=== PATIENT | female | born 1935 | race Caucasian/White ===

== ENCOUNTER 2017-11-26 21:04 | Inpatient (IN) | payer MEDICARE, SELFPAY ==
[2017-11-26 21:18] VITALS: BP 129/103; PULSE 113; RESP 22; TEMP 40.4; O2SAT 88; BMI 20.7
--- NOTE | 2017-11-26 21:23 | ED_ITS ---
HPI - Fever General Chief Complaint: Fever Stated Complaint: altered mental status Time Seen by Provider: 11/26/17 21:10 Source: family Mode of arrival: EMS Limitations: other History of Present Illness HPI Narrative: Patient is an 82-year-old female who arrived with her and financial compliance officer stating that starting just prior to arrival the patient became more altered at home. The states that she does have a history of Alzheimer's and is relatively nonverbal however will interact with stimulation. They state that since last evening she has become interactive. They were concerned about dark urine. Also a fever at home. No history of trauma. Related Data Allergies Allergy/AdvReac Type Severity Reaction Status Date / Time No Known Drug Allergies Allergy Verified 11/26/17 21:28 Review of Systems Review of Systems unobtainable due to mental status PFSH Medical History Alzheimer's dementia (Acute) Surgical History No pertinent past surgical history (Acute) Family History: Reviewed 11/26/17 by Tony Villafana MD Social History household members: spouse Smoking Status: Unknown if ever smoked Exam Initial Vital Signs Initial Vital Signs: Vital Signs Temperature 104.7 F H 11/26/17 21:18 Pulse Rate 113 H 11/26/17 21:18 Respiratory Rate 22 11/26/17 21:18 Blood Pressure 129/103 H 11/26/17 21:18 Pulse Oximetry 88 L 11/26/17 21:18 Const General: comfortable and ill appearing Orientation: not alert, awake and not oriented x3 HENMT Head: normal to inspection and normocephalic Resp Effort & Inspection: normal respiratory effort Auscultation: clear to auscultation bilaterally Cardio Rate: tachycardic Rhythm: regular rhythm Heart Sounds: no murmurs Pulses: radial pulses present GI Inspection: non-distended Palpation: soft Skin Lesions: no lesions Rashes: no rashes Neuro General: awake and not oriented x3 Other: Patient would only respond to painful stimuli. Would not follow commands. Would not speak. Extrem Other: No gross deformities Psych Appearance: well kempt and not disheveled Scores GCS Rolando coma scale eye opening: To sound Rolando coma scale verbal response: None Rolando coma scale motor response: None Rolando coma scale total score: 5 Course Orders Ordered: ED Orders 11/26/17 21:25 Urinalysis and Microscopic Stat Urine Culture Stat 08/17/18 21:45 Basic Metabolic Panel Stat Complete Blood Count AUTO DIFF Stat Lactate (Lactic Acid) Stat Procalcitonin Stat 11/26/17 22:00 Blood Culture Stat 11/26/17 22:22 XR chest 1V Stat 11/26/17 22:49 Consult to Discharge Planning Routine Consult to Occupational Therapy Evaluate & Treat 11/26/17 22:50 Consult to Physical Therapy Evaluate & Treat 11/27/17 B Type Natriuretic Peptide Routine Basic Metabolic Panel Routine Complete Blood Count AUTO DIFF Routine EKG-12 Lead Routine 11/27/17 01:00 MRSA PCR Stat 11/27/17 02:10 Lactate 4HR (Lactic Acid Rflx) Stat Bisacodyl (Dulcolax) 10 mg CA DAILY PRN PRN Reason: Constipation Dextrose/Sodium Chloride (Dextrose 5%-0.9% Ns) 1,000 mls @ 100 mls/hr IV CONT CARY Last Admin: 11/27/17 00:12 Dose: 100 mls/hr Naloxone HCl (Narcan) 0.2 mg IV Q2MIN PRN PRN Reason: Opiate Reversal Ondansetron HCl (Zofran) 4 mg IV Q8HR PRN PRN Reason: Nausea And Vomiting Promethazine HCl (Phenadoz) 12.5 mg CA Q6HR PRN PRN Reason: Nausea And Vomiting Discontinued Medications Acetaminophen (Tylenol) 650 mg CA NOW ONE Stop: 11/26/17 21:29 Last Admin: 11/26/17 21:44 Dose: 650 mg Albuterol/Ipratropium (Duoneb) 3 ml INH [id number] [facility] Enoxaparin Sodium (Lovenox) 30 mg SUBCUT DAILY [facility] Fentanyl (Sublimaze) 25 mcg IV NOW ONE Stop: 11/26/17 23:53 Last Admin: 11/26/17 23:55 Dose: 25 mcg Sodium Chloride (Normal Saline 0.9%) 1,700.97 mls @ 566.99 mls/hr 30 ml/kg infuse over 3 hr (1700.97 ml) IV CONT CARY Stop: 11/27/17 00:45 Last Infusion: 11/27/17 00:08 Dose: 0 mls/hr Admin: 11/26/17 21:47 Dose: 566.99 mls/hr Ceftriaxone Sodium/Dextrose (Rocephin) 1 gm in 50 mls @ 100 mls/hr IV NOW ONE Stop: 11/26/17 22:13 Last Infusion: 11/26/17 22:52 Dose: 0 mls/hr Admin: 11/26/17 22:05 Dose: 100 mls/hr Sodium Chloride (Normal Saline 0.9%) 1,000 mls @ 500 mls/hr IV BOLUS ONE Stop: 11/27/17 00:57 Last Admin: 11/27/17 00:10 Dose: Not Given Piperacillin/Tazobactam/Dextrose (Zosyn) 3.375 gm in 50 mls @ 100 mls/hr IV Q8H C[place] Morphine Sulfate (Morphine) 0.5 mg IV Q4HR PRN PRN Reason: Pain, Moderate (4-6) Pantoprazole Sodium (Protonix) 40 mg IV DAILY [facility] Vital Signs - 8 hr 11/26/17 21:18 11/26/17 21:53 11/26/17 22:45 Temperature 104.7 F H 100.6 F H Pulse Rate 113 H 96 H 210 H Respiratory Rate 22 18 18 Blood Pressure 129/103 H Blood Pressure [Left Arm] 142/63 H 89/50 L Pulse Oximetry 88 L 97 97 11/26/17 22:53 11/26/17 23:20 11/27/17 00:49 Temperature 100.6 F H 100.2 F H Pulse Rate 197 H 116 H Respiratory Rate 16 Blood Pressure 102/58 L Blood Pressure [Left Arm] 113/60 Pulse Oximetry 97 97 11/27/17 00:50 11/27/17 01:15 11/27/17 01:18 Temperature 98.2 F Pulse Rate 109 H Respiratory Rate 23 Blood Pressure 118/74 Blood Pressure [Left Arm] Pulse Oximetry 95 95 94 MDM - Fever Lab Data Result diagrams: 11/26/17 21:45 11/26/17 21:45 Lab Results 11/26/17 11/26/17 11/26/17 Range/Units 21:25 21:45 21:45 WBC 8.3 (4.5-11.0) X10^3/uL RBC 4.64 (4.0-5.2) X10^6/uL Hgb 14.4 (12.0-16.0) g/dL Hct 42.2 (36-46) % MCV 90.9 (80-100) fL MCH 31.1 (26-34) PG MCHC 34.2 (30-36) % RDW 13.5 (11.6-14.8) % Plt Count 224 (150-400) X10^3/uL Neut % (Auto) 96.9 H (50-75) % Lymph % (Auto) 2.3 L (25-40) % [place] % (Auto) 0.6 L (3-14) % Eos % (Auto) 0.1 L (2-4) % Baso % (Auto) 0.1 (0-2) % Neut # (Auto) 8100 H (9912-1331) /uL Sodium 145 (137-145) mmol/L Potassium 3.5 (3.4-5.1) mmol/L Chloride 107 (98-107) mmol/L Carbon Dioxide 21 L (22-32) mmol/L BUN 20 H (7-17) mg/dL Creatinine 0.90 (0.52-1.04) mg/dL Estimated GFR 59.8 L (>60) mL/min BUN/Creatinine Ratio 22.2 H (6-22) Glucose 159 H (80-110) mg/dL Lactate (0.7-2.1) mmol/L Calcium 9.0 (8.4-10.2) mg/dL Procalcitonin (<0.5) ng/mL Urine Color Yellow Urine Appearance Slightly cloudy Urine pH 5.0 (4.5-8.0) Ur Specific [place] 1.025 (1.000-1.035) Urine Protein 2+ H (Negative) Urine Glucose (UA) Negative (Normal) g/dL Urine Ketones Negative (NEGATIVE) Urine Occult Blood 3+ H (Negative) Urine Nitrate Positive H (Negative) Urine Bilirubin Negative (NEGATIVE) Urine Urobilinogen 0.2 (0.2) E.U./dL Ur Leukocyte Esterase Negative (NEGATIVE) Urine RBC 10-30/hpf H (0-5/HPF) Urine WBC 0-1/hpf (0-5/HPF) Urine Bacteria Many (>30) H (None) Ur Culture Indicated? Not Reportable Micro UA Comment Not Reportable Nasal Screen MRSA (PCR) (Negative) 11/26/17 11/26/17 11/27/17 Range/Units 21:45 21:45 01:00 WBC (4.5-11.0) X10^3/uL RBC (4.0-5.2) X10^6/uL Hgb (12.0-16.0) g/dL Hct (36-46) % MCV (80-100) fL MCH (26-34) PG MCHC (30-36) % RDW (11.6-14.8) % Plt Count (150-400) X10^3/uL Neut % (Auto) (50-75) % Lymph % (Auto) (25-40) % [place] % (Auto) (3-14) % Eos % (Auto) (2-4) % Baso % (Auto) (0-2) % Neut # (Auto) (6238-3334) /uL Sodium (137-145) mmol/L Potassium (3.4-5.1) mmol/L Chloride (98-107) mmol/L Carbon Dioxide (22-32) mmol/L BUN (7-17) mg/dL Creatinine (0.52-1.04) mg/dL Estimated GFR (>60) mL/min BUN/Creatinine Ratio (6-22) Glucose (80-110) mg/dL Lactate 4.2 H (0.7-2.1) mmol/L Calcium (8.4-10.2) mg/dL Procalcitonin 1.73 H (<0.5) ng/mL Urine Color Urine Appearance Urine pH (4.5-8.0) Ur Specific [place] (1.000-1.035) Urine Protein (Negative) Urine Glucose (UA) (Normal) g/dL Urine Ketones (NEGATIVE) Urine Occult Blood (Negative) Urine Nitrate (Negative) Urine Bilirubin (NEGATIVE) Urine Urobilinogen (0.2) E.U./dL Ur Leukocyte Esterase (NEGATIVE) Urine RBC (0-5/HPF) Urine WBC (0-5/HPF) Urine Bacteria (None) Ur Culture Indicated? Micro UA Comment Nasal Screen MRSA (PCR) Negative for mrsa (Negative) 11/27/17 Range/Units 02:10 WBC (4.5-11.0) X10^3/uL RBC (4.0-5.2) X10^6/uL Hgb (12.0-16.0) g/dL Hct (36-46) % MCV (80-100) fL MCH (26-34) PG MCHC (30-36) % RDW (11.6-14.8) % Plt Count (150-400) X10^3/uL Neut % (Auto) (50-75) % Lymph % (Auto) (25-40) % [place] % (Auto) (3-14) % Eos % (Auto) (2-4) % Baso % (Auto) (0-2) % Neut # (Auto) (8810-9866) /uL Sodium (137-145) mmol/L Potassium (3.4-5.1) mmol/L Chloride (98-107) mmol/L Carbon Dioxide (22-32) mmol/L BUN (7-17) mg/dL Creatinine (0.52-1.04) mg/dL Estimated GFR (>60) mL/min BUN/Creatinine Ratio (6-22) Glucose (80-110) mg/dL Lactate 2.9 H (0.7-2.1) mmol/L Calcium (8.4-10.2) mg/dL Procalcitonin (<0.5) ng/mL Urine Color Urine Appearance Urine pH (4.5-8.0) Ur Specific [place] (1.000-1.035) Urine Protein (Negative) Urine Glucose (UA) (Normal) g/dL Urine Ketones (NEGATIVE) Urine Occult Blood (Negative) Urine Nitrate (Negative) Urine Bilirubin (NEGATIVE) Urine Urobilinogen (0.2) E.U./dL Ur Leukocyte Esterase (NEGATIVE) Urine RBC (0-5/HPF) Urine WBC (0-5/HPF) Urine Bacteria (None) Ur Culture Indicated? Micro UA Comment Nasal Screen MRSA (PCR) (Negative) ECG Data Attestation: I personally reviewed and interpreted this ECG as follows: Prior ECG tracings: not available for review Interpretation: Sinus tachycardia Ventricular rate of 212 Right bundle branch block QRS [address] T wave changes MDM Narrative Medical decision making narrative: Patient with a history of Alzheimer's however who is at bedside states that she is less responsive than normal. Does have nitrite positive urine. Was febrile and tachycardic upon arrival. Was given antibiotics here in the emergency department for treatment of urosepsis. Fluids ordered per sepsis protocol. Blood cultures and urine cultures obtained. Discussed the case with Dr. Villafana who accepts patient for admission. Prior to admission the patient had runs of tachycardia reaching above 200. They did seem to improve on their own however did returned. Patient was given fluids. This tachycardia appeared to be regular and not consistent with atrial fibrillation. Accepting provider was notified of these changes in heart rate. Patient was admitted to the ICU for further evaluation treatment. Discharge Plan Departure Patient Disposition: Admitted As Inpatient Clinical Impression: Urinary tract infection, Sepsis, Alzheimer's dementia, Acute alteration in mental status Discharge Date/Time: 11/27/17 00:51 Interventions: ED Discharge Assessment Last Done: 11/27/17 00:49 Admit Date/Time: 11/26/17 22:04 Admit Provider: Tony Villafana
[2017-11-26 21:34] LABS: Bilirubin Urine UA NEGATIVE (NEGATIVE); Color Urine UA YELLOW; Glucose Urine UA NEGATIVE (Normal); Ketones Urine UA NEGATIVE (NEGATIVE); Leukocyte Esterase Urine UA NEGATIVE (NEGATIVE); Nitrite Urine UA POSITIVE (Negative); Occult Blood Urine UA 3+ (Negative); Protein Urine UA 2+ (Negative); Specific Gravity Urine UA 1.025 (1.000-1.035); Urobilinogen Urine UA 0.2 E.U./dL (0.2)
[2017-11-26 21:37] LABS: Appearance Urine UA Slightly Cloudy
[2017-11-26] MEDS: ACETAMINOPHEN 650 MG SUPP PR (21:44)
[2017-11-26 21:45] LABS: Bacteria Urine Many (>30); RBC Urine 10-30/HPF (0-5/HPF); WBC Urine 0-1/HPF (0-5/HPF)
[2017-11-26] MEDS: SODIUM CHLORIDE 0.9% 1,700.97 ML 566.99 ML IV (21:47)
[2017-11-26 21:53] VITALS: BP 142/63; PULSE 96; RESP 18; O2SAT 97
[2017-11-26 22:05] LABS: Add Manual Diff / Slide Review NO; Basophils Percent Auto 0.1 % (0-2); Eosinophils Percent Auto 0.1 % (2-4); Hematocrit 42.2 % (36-46); Hemoglobin 14.4 g/dL (12.0-16.0); Lymphocytes Percent Auto 2.3 % (25-40); Mean Corpuscular HGB Conc 34.2 % (30-36); Mean Corpuscular Hemoglobin 31.1 PG (26-34); Mean Corpuscular Volume 90.9 fL (80-100); Monocytes Percent Auto 0.6 % (3-14); Neutrophils Absolute Auto 8100 /uL (3000-5900); Neutrophils Percent Auto 96.9 % (50-75); Platelet Count 224 X10^3/uL (150-400); Red Blood Cell Count 4.64 X10^6/uL (4.0-5.2); Red Cell Distribution Width 13.5 % (11.6-14.8); White Blood Cell Count 8.3 X10^3/uL (4.5-11.0)
[2017-11-26] MEDS: CEFTRIAXONE 1 GM/50 ML FROZ.PIGGY IV (22:05)
[2017-11-26 22:11] LABS: Lactate (Lactic Acid) 4.2 mmol/L (0.7-2.1)
[2017-11-26 22:13] LABS: BUN Creatinine Ratio 22.2 (6-22); Blood Urea Nitrogen 20 mg/dL (7-17); Carbon Dioxide 21 mmol/L (22-32); Chloride 107 mmol/L (98-107); Estimated Glomerular Filt Rate 59.8 mL/min (>60); Glucose 159 mg/dL (80-110); HEMOLYSIS < 15 (0-50); Potassium 3.5 mmol/L (3.4-5.1); Sodium 145 mmol/L (137-145)
--- NOTE | 2017-11-26 22:22 | DI.RAD.S_ITS ---
PROCEDURE: XR CHEST 1V INDICATIONS: r/o aspiration TECHNIQUE: One view of the chest was acquired. COMPARISON: None. FINDINGS: Surgical changes and devices: None. Lungs and pleura: No pleural effusions or pneumothorax. Mild patchy bilateral perihilar density. Mediastinum: Mediastinal contours appear normal. Heart size is normal. Bones and chest wall: No suspicious bony lesions. Overlying soft tissues appear unremarkable. IMPRESSION: Mild atypical pneumonia. Dictated by: Paulina Schwartz M.D. on 11/27/2017 at 8:54 Approved by: Paulina Schwartz M.D. on 11/27/2017 at 8:54
--- NOTE | 2017-11-26 22:28 | PC.NURSE ---
Hospitalist in to see pt. Requesting verbal order for portable chest. Ordered. Pt resting in bed. receiving IVF and Rocephin. Caregiver and in the room. is POA and made staff aware that pt is DNR/DNI.
[2017-11-26 22:30] LABS: Procalcitonin 1.73 ng/mL (<0.5)
[2017-11-26 22:45] VITALS: BP 89/50; PULSE 210; RESP 18; TEMP 38.1; O2SAT 97
--- NOTE | 2017-11-26 22:47 | PC.NURSE ---
at 2243 pt quality assurance monitor final alarmed. Pt with HR of 205-215 narrow complex. Pt BP decreased to 89/50. Pt nonverbal. pt laid down and stat EKG called to RT. Dr Riley made aware.
--- NOTE | 2017-11-26 22:52 | PM.HP.1 ---
History of Present Illness Date Patient Seen: 11/26/17 Time Patient Seen: 22:15 Chief complaint: altered mental status Narrative: This is an 82-year-old here with delayed female with advanced dementia presenting with altered mental status/encephalopathy secondary to acute in tract infection, bilateral aspiration pneumonia. The patient is obtunded and at the baseline nonverbal. All information was obtained from discussion with ED and physician and patient's was present at the bedside. Per report, was acute changes in her mentation progressing to nonresponsiveness since this evening at. Upon arrival to ED diabetes high fever up to 104, mild sinus tachycardia but no hypertension. Patient had a witnessed episode of nausea and vomiting. Initial clinical labs always had abnormal UA suggestive for acute infection. Auscultation of both lungs was coarse breath sounds suggestive of possible aspiration. Patient History Comment: History of craniotomy for meningioma, remote History of multiple prior abdominal surgeries Family & Social History Family History: Reviewed 11/26/17 by Tony Villafana MD Family history unavailable: Yes Social History: Patient is , lives with her . No history of smoking alcohol abuse or illicit drug use. Safety & Behavioral: Lives at home with and caregiver 02/11 Tobacco & Substance use: No history of smoking, alcohol abuse or illicit drug use Meds Allergies Allergy/AdvReac Type Severity Reaction Status Date / Time No Known Drug Allergies Allergy Verified 11/26/17 21:28 Review of Systems Review of Systems unobtainable due to mental status and other (Patient is demented with a baseline aphasia) Exam Vital Signs (past 8 hours): - 11/26/17 21:18 11/26/17 21:53 Temperature 104.7 F H Pulse Rate 113 H 96 H Respiratory Rate 22 18 Blood Pressure 129/103 H Blood Pressure [Left Arm] 142/63 H Pulse Oximetry 88 L 97 Oxygen Delivery Method Room Air Narrative Exam Narrative: Constitutional: Well-developed, ill-appearing elderly female resting in her bed she is nonverbal and nonresponsive to verbal stimulation HEENT: With signs of old craniotomy, otherwise unremarkable Neck: Supple, no lymphadenopathy, no jugular venous distention Pulmonary: Coarse breathing bilaterally Cardiovascular: Sinus tachycardia is not discernible murmurs Gastrointestinal: Abdomen is soft, nontender, nondistended, bowel sounds present Genitourinary: Wearing a depends Extremities: Warm to touch, no peripheral edema Skin: No skin lesions, no rash seen. Neurological: Limited exam due delirium/obtundation, no obvious focal neurological symptoms detected. Objective Labs Result Diagrams: 11/26/17 21:45 11/26/17 21:45 Labs: Laboratory Results - last 24 hr 11/26/17 11/26/17 11/26/17 21:25 21:45 21:45 WBC 8.3 RBC 4.64 Hgb 14.4 Hct 42.2 MCV 90.9 MCH 31.1 MCHC 34.2 RDW 13.5 Plt Count 224 Neut % (Auto) 96.9 H Lymph % (Auto) 2.3 L [place] % (Auto) 0.6 L Eos % (Auto) 0.1 L Baso % (Auto) 0.1 Neut # (Auto) 8100 H Sodium 145 Potassium 3.5 Chloride 107 Carbon Dioxide 21 L BUN 20 H Creatinine 0.90 Estimated GFR 59.8 L BUN/Creatinine Ratio 22.2 H Glucose 159 H Lactate Calcium 9.0 Procalcitonin Urine Color Yellow Urine Appearance Slightly cloudy Urine pH 5.0 Ur Specific [place] 1.025 Urine Protein 2+ H Urine Glucose (UA) Negative Urine Ketones Negative Urine Occult Blood 3+ H Urine Nitrate Positive H Urine Bilirubin Negative Urine Urobilinogen 0.2 Ur Leukocyte Esterase Negative Urine RBC 10-30/hpf H Urine WBC 0-1/hpf Urine Bacteria Many (>30) H Ur Culture Indicated? Not Reportable Micro UA Comment Not Reportable 11/26/17 11/26/17 21:45 21:45 WBC RBC Hgb Hct MCV MCH MCHC RDW Plt Count Neut % (Auto) Lymph % (Auto) [place] % (Auto) Eos % (Auto) Baso % (Auto) Neut # (Auto) Sodium Potassium Chloride Carbon Dioxide BUN Creatinine Estimated GFR BUN/Creatinine Ratio Glucose Lactate 4.2 H Calcium Procalcitonin 1.73 H Urine Color Urine Appearance Urine pH Ur Specific [place] Urine Protein Urine Glucose (UA) Urine Ketones Urine Occult Blood Urine Nitrate Urine Bilirubin Urine Urobilinogen Ur Leukocyte Esterase Urine RBC Urine WBC Urine Bacteria Ur Culture Indicated? Micro UA Comment Assessment & Plan Plan: Assessment/Plan Narrative: 1. Altered mental status/encephalopathy: Possibly multifactorial, patient has underlying advanced dementia, presenting with clinical symptoms of evolving sepsis secondary to acute infection and bilateral aspiration pneumonia. Treat underlying medical problems. 2. Sepsis: Secondary to above, presented with high fever, significant worsening of mentation, clinical symptoms of a UTI and aspiration pneumonia. Continue IV hydration was normal saline, start patient on antibiotic coverage was combination of IV Zosyn and vancomycin. 3. Dementia, advanced : Patient has underlying advanced Alzheimer's dementia, the baseline appears to be nonverbal. 4. Acute urinary tract infection: As above, at the baseline is chronic urinary incontinence. 5. Bilateral aspiration pneumonia: with witnessed episodes of nausea and vomiting in the ED, pending chest x-ray. Measurements as above. 6. Profound debilitation [id number]: Multifactorial. Might benefit from eventual transition to palliation/hospice care 7. GI prophylaxis: Protonix IV 8. DVT prophylaxis: Lovenox sc 9. Code status: DNR/DNI
[2017-11-26 22:53] VITALS: TEMP 38.1
--- NOTE | 2017-11-26 22:59 | PC.NURSE ---
At this time pt's HR has decreased to 112. BP increased to normal at 117/79. Dr Riley speaking to Hospitalist.
--- NOTE | 2017-11-26 23:02 | PC.NURSE ---
Pt continues to have labile HR from 112 to a narrow complex tach 200-215. Remains nonverbal and minimally responsive. Can open eyes to painful stimuli. airway intact.
[2017-11-26 23:20] VITALS: BP 113/60; PULSE 197; O2SAT 97
[2017-11-26] MEDS: fentaNYL 100 MCG/2 ML INJ 25 MCG IV (23:55)
[2017-11-27] VITALS (11 sets, daily range): BP systolic 93–118; BP diastolic 49–74; PULSE 71–116; RESP 15–32; TEMP 36.1–37.9; O2SAT 93–99; BMI 19.5
[2017-11-27] MEDS: DEXTROSE 5%-0.9% NS 1,000 ML 100 ML IV ×3 (00:12→23:46)
[2017-11-27 01:59] LABS: Reflexed Lactate in 2 Hours Y
[2017-11-27 02:28] LABS: Lactate 2HR (Lactic Acid Rflx) 2.9 mmol/L (0.7-2.1)
--- NOTE | 2017-11-27 06:48 | PC.ADMIT ---
[id number] [facility] Admission Note: The patient,Catia Cullen,82 y/o, was given written information regarding hospital policies, unit procedures and contact persons. Patient's smoking status: Unknown if ever smoked. Vital Signs - 8 hr 11/26/17 22:53 11/26/17 23:20 11/27/17 00:49 Temperature 100.6 F H 100.2 F H Pulse Rate 197 H 116 H Respiratory Rate 16 Blood Pressure 102/58 L Blood Pressure [Left Arm] 113/60 Pulse Oximetry 97 97 11/27/17 00:50 11/27/17 01:15 11/27/17 01:18 Temperature 98.2 F Pulse Rate 109 H Respiratory Rate 23 Blood Pressure 118/74 Blood Pressure [Left Arm] Pulse Oximetry 95 95 94 11/27/17 04:06 11/27/17 06:02 Temperature Pulse Rate 99 H Respiratory Rate 15 Blood Pressure 93/49 L Blood Pressure [Left Arm] Pulse Oximetry 93 97 Admitted to ICU, room 102 via stretcher, tolerated transfer to bed and partial linen change, incontinent large amount of urine prior to [place] cath placement, total UOP 400ml for night, D5NS @ 100ml/hr. ST 100-115 upon admit, SR 90s by am, BP stable, see vital trends. 2L NC SpO2 92-98% breath sounds clear. Afebrile, repeat lactate 2.9. Patient is non-verbal, some information obtained from spouse before he left for the night.
[2017-11-27 07:21] LABS: Hematocrit 39.2 % (36-46); Hemoglobin 13.4 g/dL (12.0-16.0); Mean Corpuscular HGB Conc 34.2 % (30-36); Mean Corpuscular Hemoglobin 30.9 PG (26-34); Mean Corpuscular Volume 90.4 fL (80-100); Platelet Count 199 X10^3/uL (150-400); Red Blood Cell Count 4.33 X10^6/uL (4.0-5.2); Red Cell Distribution Width 13.8 % (11.6-14.8); White Blood Cell Count 23.5 X10^3/uL (4.5-11.0)
[2017-11-27 07:22] LABS: Add Manual Diff / Slide Review YES
[2017-11-27 07:31] LABS: Blood Urea Nitrogen 16 mg/dL (7-17); Calcium 8.2 mg/dL (8.4-10.2); Carbon Dioxide 24 mmol/L (22-32); Chloride 111 mmol/L (98-107); Estimated Glomerular Filt Rate > 60.0 mL/min (>60); Glucose 151 mg/dL (80-110); HEMOLYSIS < 15 (0-50); Potassium 2.9 mmol/L (3.4-5.1); Sodium 145 mmol/L (137-145)
[2017-11-27 07:43] LABS: Morphology Comment Normal Morphology; Neutrophils Absolute Manual 20680 /uL (3000-5900); Total Cells Counted 100
[2017-11-27] MEDS: PIPERACILLIN-TAZO 3.375 GM/50 ML FROZ.PIGGY IV ×2 (08:36→15:07)
--- NOTE | 2017-11-27 08:47 | P.PN_ITS ---
Subjective Date Patient Seen: 11/27/17 Time Patient Seen: 08:20 Interval history: This is an 82-year-old debilitated female with advanced dementia presenting with altered mental status/encephalopathy secondary to acute urinary tract infection, bilateral aspiration pneumonia, resulting in sepsis . Patient was admitted to ICU with broad IV antibiotic coverage, IV fluid support , symptomatic and supportive care. Overnight, with significant clinical improvement, including mentation. Patient remains hemodynamically stable, this job is persistent leukocytosis, elevated lactic acid, hyperkalemia. Exam Vital Signs (past 8 hours): - 11/27/17 00:49 11/27/17 00:50 11/27/17 01:15 Temperature 100.2 F H Pulse Rate 116 H Respiratory Rate 16 Blood Pressure 102/58 L Pulse Oximetry 97 95 95 11/27/17 01:18 11/27/17 04:06 11/27/17 06:02 Temperature 98.2 F Pulse Rate 109 H 99 H Respiratory Rate 23 15 Blood Pressure 118/74 93/49 L Pulse Oximetry 94 93 97 11/27/17 07:57 Temperature 98.1 F Pulse Rate 88 Respiratory Rate 24 Blood Pressure 116/71 Pulse Oximetry 99 Oxygen Delivery Method Nasal Cannula Oxygen Flow Rate 3 Narrative Exam Narrative: Constitutional: Well-nourished, well-developed female in no apparent distress resting comfortably in her bed. She is alert, responsive to verbal stimulation though at the baseline remains aphasic HEENT: Unremarkable exam Eyes: PERRLA, EOMI Neck: Supple no lymphadenopathy nodule consistent Pulmonary: With improved aeration bilaterally Cardiovascular: with mild sinus tachycardia Gastrointestinal: Abdomen is soft, nontender, nondistended, bowel sounds present, no discernible organomegaly. : Ford catheter is present, draining clear urine. Extremities: Warm to touch, no edema Skin: No skin rashes, no lesions. Neurological: No focal neurological symptoms from cranial nerves 2-12. Objective Labs Result Diagrams: 11/27/17 07:13 11/27/17 07:13 Labs: Laboratory Results - last 24 hr 11/26/17 11/26/17 11/26/17 21:25 21:45 21:45 WBC 8.3 RBC 4.64 Hgb 14.4 Hct 42.2 MCV 90.9 MCH 31.1 MCHC 34.2 RDW 13.5 Plt Count 224 Neut % (Auto) 96.9 H Lymph % (Auto) 2.3 L [place] % (Auto) 0.6 L Eos % (Auto) 0.1 L Baso % (Auto) 0.1 Neut # (Auto) 8100 H Total Counted Seg Neutrophils % Band Neutrophils % Lymphocytes % (Manual) Atypical Lymphs % Monocytes % (Manual) Neutrophils # (Manual) Differential Comment RBC Morphology Sodium 145 Potassium 3.5 Chloride 107 Carbon Dioxide 21 L BUN 20 H Creatinine 0.90 Estimated GFR 59.8 L BUN/Creatinine Ratio 22.2 H Glucose 159 H Lactate Calcium 9.0 B-Natriuretic Peptide Procalcitonin Urine Color Yellow Urine Appearance Slightly cloudy Urine pH 5.0 Ur Specific [place] 1.025 Urine Protein 2+ H Urine Glucose (UA) Negative Urine Ketones Negative Urine Occult Blood 3+ H Urine Nitrate Positive H Urine Bilirubin Negative Urine Urobilinogen 0.2 Ur Leukocyte Esterase Negative Urine RBC 10-30/hpf H Urine WBC 0-1/hpf Urine Bacteria Many (>30) H Ur Culture Indicated? Not Reportable Micro UA Comment Not Reportable Nasal Screen MRSA (PCR) 11/26/17 11/26/17 11/27/17 21:45 21:45 01:00 WBC RBC Hgb Hct MCV MCH MCHC RDW Plt Count Neut % (Auto) Lymph % (Auto) [place] % (Auto) Eos % (Auto) Baso % (Auto) Neut # (Auto) Total Counted Seg Neutrophils % Band Neutrophils % Lymphocytes % (Manual) Atypical Lymphs % Monocytes % (Manual) Neutrophils # (Manual) Differential Comment RBC Morphology Sodium Potassium Chloride Carbon Dioxide BUN Creatinine Estimated GFR BUN/Creatinine Ratio Glucose Lactate 4.2 H Calcium B-Natriuretic Peptide Procalcitonin 1.73 H Urine Color Urine Appearance Urine pH Ur Specific [place] Urine Protein Urine Glucose (UA) Urine Ketones Urine Occult Blood Urine Nitrate Urine Bilirubin Urine Urobilinogen Ur Leukocyte Esterase Urine RBC Urine WBC Urine Bacteria Ur Culture Indicated? Micro UA Comment Nasal Screen MRSA (PCR) Negative for mrsa 11/27/17 11/27/17 11/27/17 02:10 07:13 07:13 WBC 23.5 H D RBC 4.33 Hgb 13.4 Hct 39.2 MCV 90.4 MCH 30.9 MCHC 34.2 RDW 13.8 Plt Count 199 Neut % (Auto) Not Reportable Lymph % (Auto) Not Reportable [place] % (Auto) Not Reportable Eos % (Auto) Not Reportable Baso % (Auto) Not Reportable Neut # (Auto) Total Counted 100 Seg Neutrophils % 69.0 Band Neutrophils % 19.0 H Lymphocytes % (Manual) 2.0 L Atypical Lymphs % 3.0 H Monocytes % (Manual) 7.0 Neutrophils # (Manual) 55771 H Differential Comment Normal morphology RBC Morphology Not Reportable Sodium 145 Potassium 2.9 L Chloride 111 H Carbon Dioxide 24 BUN 16 Creatinine 0.80 Estimated GFR > 60.0 BUN/Creatinine Ratio 20.0 Glucose 151 H Lactate 2.9 H Calcium 8.2 L B-Natriuretic Peptide 502.0 H Procalcitonin Urine Color Urine Appearance Urine pH Ur Specific [place] Urine Protein Urine Glucose (UA) Urine Ketones Urine Occult Blood Urine Nitrate Urine Bilirubin Urine Urobilinogen Ur Leukocyte Esterase Urine RBC Urine WBC Urine Bacteria Ur Culture Indicated? Micro UA Comment Nasal Screen MRSA (PCR) Assessment & Plan Plan: Assessment/Plan Narrative: 1. Altered mental status/encephalopathy: Possibly multifactorial, patient has underlying advanced dementia, presenting with clinical symptoms of evolving sepsis secondary to acute infection and bilateral aspiration pneumonia. With significant improvement in mentation over night. Continue to treat underlying medical problems. 2. Sepsis: Secondary to above, resolving. Presented with high fever, significant worsening of mentation, clinical symptoms of a UTI and aspiration pneumonia. Continue IV hydration was normal saline, antibiotic coverage was combination of IV Zosyn and vancomycin. Pending blood and urine cultures, interval chest x -ray . Hypotension and sinus tachycardia is resolving. 3. Dementia, advanced : Patient has underlying advanced Alzheimer's dementia, at the baseline appears to be nonverbal. 4. Acute urinary tract infection: As above, resolving. At the baseline with chronic urinary incontinence. Continue current antibiotic therapy as above. 5. Bilateral aspiration pneumonia: with witnessed episode of nausea and vomiting in the ED . Clinically resolving, continue management as above. 6. Profound debilitation [id number]: Multifactorial. Might benefit from eventual transition to palliation/hospice care 7. GI prophylaxis: Protonix IV 8. DVT prophylaxis: Lovenox sc 9. Code status: DNR/DNI
--- NOTE | 2017-11-27 11:20 | PT.IIE ---
Surgical History (Last Updated 11/27/17 @ 03:19 by Jason Riley DO) No pertinent past surgical history (Acute) Medical History (Last Updated 11/27/17 @ 03:19 by Jason Riley DO) Alzheimer's dementia (Acute) Physical Therapy Inpatient Evaluation/Re-Eval M1 PT/OT-IP Prior Functional Status Start: 11/27/17 12:24 Freq: Status: Active Protocol: Document 11/27/17 11:20 [facility] (Rec: 11/27/17 12:35 [facility] [id number]) Medical Review Prior Functional Status Communication mainly non-verbal Mobility and Gait modified indep. gait with HH assist, able to go up/down stairs with railing @ [employer] Activities of Daily Living and IADL's assist with cooking, showering with CG Social History Household Members spouse Living Arrangements House Number of Floors (Floors) One Floor Number of Stairs To Enter/Railing? no steps Home Environment Standard Height Toilet Walk in Shower Home Equipment Shower Seat without Backrest Hand Held Shower Grab Bars Near Toilet Grab Bars In Shower Additional Social History Comment Pt lives with , and CG is @ home 5 days per week, 10 am to 4 pm. M2 PT-IP Current Condition Start: 11/27/17 12:24 Freq: Status: Active Protocol: Document 11/27/17 11:20 [facility] (Rec: 11/27/17 12:35 [facility] [id number]) Physical Therapy Current Condition Current Condition Evaluation Date 11/27/17 Treatment Diagnosis AMS, impaired mobility Onset Date 11/26/17 M3 PT-IP Subjective Start: 11/27/17 12:24 Freq: Status: Active Protocol: Document 11/27/17 11:20 [facility] (Rec: 11/27/17 12:35 [facility] [id number]) Subjective Physical Therapy Visit Type Type Initial Evaluation Visit Start Time 10:52 Visit Stop Time 11:20 Total Visit Minutes 28 Number of BREAKFAST HOSTESS Visits 0 Physical Therapy Visit Comments Patient Comments pt shakes head yes when asked if she wants to try to walk. Short Term Goals unable to state. Therapy Pain Assessment Pain Present Pain Present Unable to Respond M4 PT-IP Mobility and Gait Start: 11/27/17 12:24 Freq: Status: Active Protocol: Document 11/27/17 11:20 [facility] (Rec: 11/27/17 12:35 [facility] [id number]) PT-Bed Mobility Assessment Supine to Sit Supine to Sit Maximum Assistance Sit to Supine Sit to Supine Maximum Assistance Scooting Scooting to Edge of Bed Moderate Assistance Scooting Up and Down in Bed Maximum Assistance PT-Transfer Assessment Sit to and From Stand Sit to and from Stand Moderate Assistance 1 Person Assistance Equipment Transfer Assistive Device Gait Belt Front Wheeled Walker Transfers Transfer Destination Bed Transfer Technique Stand Step Pivot Transfer Ability Level of Assist Moderate Assistance 1 Person Assistance Comments Mobility Comments Pt with cough initially after standing, followed by decreased O2 saturation to <60 % on 3L O2, RN in room and increased amount, cued for breathing (pt holding breath) and increased O2 saturation to 98%. PT-Balance Assessment Sitting Balance and Reactions Static Sitting Balance Ability Fair Dynamic Sitting Balance Ability Fair Standing Balance and Reactions Static Standing Balance Ability Fair Dynamic Standing Balance Ability Fair Device Used FWW M5 PT-IP Objective Assessments Start: 11/27/17 12:24 Freq: Status: Active Protocol: Document 11/27/17 11:20 [facility] (Rec: 11/27/17 12:35 [facility] [id number]) Orientation Orientation/Cognition Safety Awareness Decreased Safety Awareness Comments unable to answer questions for orientation Strength Comments Strength Comments unable to follow commands for formal MMT Coordination Assessment Gross Coordination Gross Coordination WNL Assessment Coordination Comments appears to be WNL, not able to formally test however, based on functional movement M7 PT-IP Assessment and Plan Start: 11/27/17 12:24 Freq: Status: Active Protocol: Document 11/27/17 11:20 [facility] (Rec: 11/27/17 12:35 [facility] [id number]) PT Summary Assessment and Plan Potential Rehabilitation Potential Fair Status of Condition at Evaluation Unstable Summary Impairments Balance Cognition Bed Mobility Transfers Gait Activity Tolerance Assessment Summary Pt with significant drop in her O2 saturation on 3-4 L O2 during standing, requiring cuing for breathing and increased amount of O2 flow rate to return pt to normal levels. Pt was not ambulated due to the significant decrease in O2 saturation, and at this time likely would not tolerate another PT session this date. Plan to check back and progress as tolerated, seeing pt 1x/day. She is not safe to return home at this time. Pt may be able to return home if she is able to be safely mobilized with CG and spouse, will be determined with further CG assessment/ training. Goals Bed Mobility Goal Contact Guard Assistance Transfer Goal Standby Assistance Gait Goal Contact Guard Assistance Gait Distance 50 Days to Meet Goals 3 Frequency of Treatment Frequency Of Treatment Once a Day Treatment Plan Physical Therapy Treatment Plan Bed Mobility Training Transfer Training Gait Training Balance Retraining Neuromuscular Re-ed Recommendations To Nursing Amount of Assist Needed 2 Person Assist Discharge Recommendations PT Discharge Recommendations Home with 02/11 Assist SNF Rehab
[2017-11-27] MEDS: POTASSIUM CHLORIDE 20 MEQ in SODIUM CHLORIDE 0.9% 250 ML 130 ML IV (12:34)
[2017-11-27 16:36] LABS: HEMOLYSIS < 15 (0-50); Potassium 3.8 mmol/L (3.4-5.1)
--- NOTE | 2017-11-27 17:46 | OT.IP.TRT ---
Occupational Therapy Treatment Note M2 OT-IP Current Condition Start: 11/27/17 17:30 Freq: Status: Active Protocol: Document 11/27/17 17:31 [facility] (Rec: 11/27/17 17:45 [facility] [id number]) Occupational Therapy Current Condition Current Condition Evaluation Date 11/27/17 Treatment Diagnosis UTI, AMS, weakness Diagnosis Onset Date 11/26/17 M3 OT- IP Subjective and Pain Start: 11/27/17 17:30 Freq: Status: Active Protocol: Document 11/27/17 17:31 [facility] (Rec: 11/27/17 17:45 [facility] [id number]) OT- Subjective Occupational Therapy Visit Type Type Initial Evaluation Visit Start Time 16:45 Visit Stop Time 16:55 Total Visit Minutes 10 Occupational Therapy Visit Comments Patient Comments Pt smiling and nodding her head when asked if she would like to get up. M4 OT- IP ADL's Start: 11/27/17 17:30 Freq: Status: Active Protocol: Document 11/27/17 17:31 [facility] (Rec: 11/27/17 17:45 [facility] [id number]) OT ADL-Grooming General Evaluation Grooming Ability Maximum Assistance Areas Needing Assistance Retrieving/Set-up of Grooming Items Combing/Brushing Hair Face Washing Comments OT Grooming Comments Hand held assist to assist for pt to wash her hands, pt not able to follow commands or hand over hand assist to wash her face. M6 OT- IP Functional Cognition Start: 11/27/17 17:30 Freq: Status: Active Protocol: Document 11/27/17 17:31 [facility] (Rec: 11/27/17 17:45 [facility] [id number]) Cognitive Factors Limiting Selfcare Function Cognitive Ability Level of Alertness Alert Patient Orientation Name Cognitive Comments Cognitive Assessment Comments Pt able to say okay, bye and nod appropriately at times. M7 OT- IP Mobility and Balance Start: 11/27/17 17:30 Freq: Status: Active Protocol: Document 11/27/17 17:31 [facility] (Rec: 11/27/17 17:45 [facility] [id number]) OT- Bed Mobility Assessment Rolling Type of Rolling Roll to Right Supine to Sit Supine to Sit Assist Contact Guard Assistance Scooting Scooting to Edge of Bed Moderate Assistance OT-Transfer Assessment Sit to and From Stand Sit to and from Stand Minimal Assistance Moderate Assistance Transfers Transfer Ability Minimal Assistance 1 Person Assistance 2 Person Assistance Technique Transfer Destination Bed Transfer Technique Stand Step Pivot Devices Transfer Assistive Devices Gait Belt Front Wheeled Walker Comments Mobility Comments Tactile cues and assist to stand , once up assist of another to move IV and help guide FWW. OT- Balance Assessment Sitting Balance and Reactions Static Sitting Balance Ability Good M8 OT- IP Objective Assessments Start: 11/27/17 17:30 Freq: Status: Active Protocol: Document 11/27/17 17:31 [facility] (Rec: 11/27/17 17:45 [facility] [id number]) OT Strength Comments Strength Comments Unable to fully assess due to pt unable to follow commands, but able to use arms to assist for bed mobility and transfer with FWW to recliner. OT-Muscle Tone Assessment Muscle Tone WNL Yes M9 OT- IP Assessment and Plan Start: 11/27/17 17:30 Freq: Status: Active Protocol: Document 11/27/17 17:31 [facility] (Rec: 11/27/17 17:45 [facility] [id number]) OT Summary Assessment and Plan Potential Rehabilitation Potential Fair Analytic Complexity at Evaluation Low Summary OT Impairments Strength Balance Functional Cognition Functional Mobility Self-Feeding Grooming Dressing Toileting Bathing Toilet Transfers Shower Transfers Progress Towards Goals Slow Progress due to Medical Issues Slow Progress due to Activity Tolerance Slow Progress due to Cognition Assessment Summary Pt low complexity main barrier ability for follow commands, pt will continues to need 24/ 7 assist upon discharge. Goals Grooming Goal Moderate Assistance Dressing Goal Moderate Assistance Toileting Goal Moderate Assistance Bathing Goal Moderate Assistance Toilet Transfer Goal Minimal Assistance Shower Transfer Goal Minimal Assistance Patient/Caregiver Education Goal Caregiver Independent Assisting Patient Days to Meet Goals 5 Frequency of Treatment Frequency Of Treatment Once a Day Treatment Plan OT Treatment Plan ADL Training Functional Cognition Training Functional Mobility Patient/Family Education Discharge Planning Other Treatment Recommendations and Next ADL's. Treatment Focus Discharge Recommendations OT Discharge Recommendations Home with 24/7 Assist
--- NOTE | 2017-11-27 19:31 | PC.NURSE ---
Addendum entered by Smiley Sanders R.N. 11/27/17 20:13: Pt more restless, picking at IV. 2 Person assist back to bed. Placed on left side. Original Note: jennie note pt up to chair with OT, using FWW and many visual cues. Pt transferred well once she was at edge of bed. Chair alarm on. Pt fidgeting with linens, papers on table. Not trying to get up.
[2017-11-28] VITALS (11 sets, daily range): BP systolic 112–138; BP diastolic 57–86; PULSE 77–96; RESP 16–22; TEMP 35.9–36.7; O2SAT 92–99
--- NOTE | 2017-11-28 | DI.CT.S_ITS ---
PROCEDURE: CT CHEST WO CON INDICATIONS: f/u on aspiration PNA, sepsis TECHNIQUE: Noncontrast 5 mm thick sections acquired from the pulmonary apices to the posterior costophrenic angles. 7 mm thick coronal and sagittal MIP reformats were then acquired. For radiation dose reduction, the following was used: automated exposure control, adjustment of mA and/or kV according to patient size. COMPARISON: [facility], CR, XR CHEST 1V, 11/26/2017, 22:28. FINDINGS: Image quality: There is mild motion artifact. Lungs and pleura: There are small bilateral pleural effusions demonstrated. There is associated compressive atelectasis with areas of confluence inferiorly. Superimposed infection cannot be excluded. There is an irregular spiculated ground glass nodule within the left upper lobe measuring up to 1.8 cm. A few small clustered indistinct ground glass nodules are also noted in the right apex. Mediastinum: Heart size is normal. No pericardial effusion. There is coronary arterial vascular calcification. No mediastinal adenopathy by size criteria. Thoracic aorta and central pulmonary arteries are normal in size. Esophagus is normal in caliber. No hiatal hernia. Bones and chest wall: No suspicious bony lesions. No vertebral body compression fractures. No axillary or supraclavicular adenopathy by size criteria. Thyroid gland is not well evaluated secondary to streak artifact as well as mild motion. Abdomen: Visualized upper abdominal solid organs and bowel loops appear normal in the absence of contrast. IMPRESSION: 1. Small bilateral pleural effusions with associated compressive atelectasis. However, superimposed infection within this region inferiorly cannot be excluded. 2. Irregular spiculated ground glass nodule in the left upper lobe. The finding is nonspecific and may represent an infectious or inflammatory etiology, but a neoplasm cannot be excluded. Recommend short-term followup in 4-6 weeks to demonstrate resolution. 3. Small clustered ground glass nodules in the right apex likely represent a mild infectious or inflammatory process. Dictated by: Jerald Reddy M.D. on 11/28/2017 at 12:47 Approved by: Jerald Reddy M.D. on 11/28/2017 at 12:52
[2017-11-28] MEDS: PIPERACILLIN-TAZO 3.375 GM/50 ML FROZ.PIGGY IV ×4 (00:51→23:48)
--- NOTE | 2017-11-28 03:23 | PC.NURSE ---
Patient has been awake and fidgeting most of night so far. Alert, confused, mostly non-verbal, did repeat my name back to me when I introduced myself. Displays fear and nervousness at times, but no pain, nausea, or shortness of breath. SpO2 >92% on RA, VSS. 1 person assist to BSC, no BM. Ford and IV patent. Patient transferred to at 0320, report given to Eliza LEWIS.
--- NOTE | 2017-11-28 07:02 | PC.NURSE ---
Pt. was taken to CT dept. via for chest CT. Accompanied by her in home caregiver & CT dept. personnel.
[2017-11-28 09:04] LABS: Add Manual Diff / Slide Review NO; Basophils Percent Auto 0.5 % (0-2); Eosinophils Percent Auto 1.2 % (2-4); Hematocrit 33.6 % (36-46); Hemoglobin 11.4 g/dL (12.0-16.0); Lymphocytes Percent Auto 6.6 % (25-40); Mean Corpuscular HGB Conc 34.1 % (30-36); Mean Corpuscular Hemoglobin 30.8 PG (26-34); Mean Corpuscular Volume 90.4 fL (80-100); Monocytes Percent Auto 4.7 % (3-14); Neutrophils Absolute Auto 13200 /uL (3000-5900); Platelet Count 171 X10^3/uL (150-400); Red Blood Cell Count 3.71 X10^6/uL (4.0-5.2); White Blood Cell Count 15.2 X10^3/uL (4.5-11.0)
[2017-11-28 09:25] LABS: Alanine Aminotransferase 38 IU/L (9-52); Albumin 3.1 g/dL (3.5-5.0); Albumin Globulin Ratio 1.2 (1.0-2.8); Alkaline Phosphatase 51 U/L (38-126); Aspartate Aminotransferase 41 IU/L (14-36); BUN Creatinine Ratio 16.3 (6-22); Bilirubin Total 0.8 mg/dL (0.2-1.3); Blood Urea Nitrogen 13 mg/dL (7-17); Calcium 8.4 mg/dL (8.4-10.2); Carbon Dioxide 26 mmol/L (22-32); Chloride 113 mmol/L (98-107); Estimated Glomerular Filt Rate > 60.0 mL/min (>60); Globulin 2.5 g/dL (1.7-4.1); Glucose 99 mg/dL (80-110); HEMOLYSIS < 15 (0-50); Potassium 3.3 mmol/L (3.4-5.1); Sodium 147 mmol/L (137-145); Total Protein 5.6 g/dL (6.3-8.2)
[2017-11-28] MEDS: DEXTROSE 5%-0.9% NS 1,000 ML 100 ML IV (11:51)
[2017-11-28] MEDS: POTASSIUM CHLORIDE 20 MEQ in SODIUM CHLORIDE 0.9% 250 ML 130 ML IV (13:49)
--- NOTE | 2017-11-28 14:15 | PT.IPTN ---
Physical Therapy Treatment Note M2 PT-IP Current Condition Start: 11/27/17 12:24 Freq: Status: Active Protocol: Document 11/27/17 11:20 [facility] (Rec: 11/27/17 12:35 [facility] [email or web address]) Physical Therapy Current Condition Current Condition Evaluation Date 11/27/17 Treatment Diagnosis AMS, impaired mobility Onset Date 11/26/17 M3 PT-IP Subjective Start: 11/27/17 12:24 Freq: Status: Active Protocol: Document 11/28/17 13:15 [facility] (Rec: 11/28/17 14:15 [facility] [id number]) Subjective Physical Therapy Visit Type Type Treatment Note Visit Start Time 13:15 Visit Stop Time 13:40 Total Visit Minutes 25 Number of PRESIDENT AND CEO Visits 25 Physical Therapy Visit Comments Patient Comments Pt shakes head yes when asked if she wants to get OOB and sit in chair. Therapy Pain Assessment Pain Present Pain Present Unable to Respond M4 PT-IP Mobility and Gait Start: 11/27/17 12:24 Freq: Status: Active Protocol: Document 11/28/17 13:15 [facility] (Rec: 11/28/17 14:15 [facility] [id number]) PT-Bed Mobility Assessment Supine to Sit Supine to Sit Maximum Assistance Scooting Scooting to Edge of Bed Maximum Assistance PT-Transfer Assessment Sit to and From Stand Sit to and from Stand Moderate Assistance 1 Person Assistance Equipment Transfer Assistive Device Gait Belt Front Wheeled Walker Transfers Transfer Destination Chair Transfer Technique Stand Step Pivot Transfer Ability Level of Assist Moderate Assistance 1 Person Assistance Comments Mobility Comments Pt apprehensive to stand needing tactile cues to hold walker and needing redirection to stay on task. M5 PT-IP Objective Assessments Start: 11/27/17 12:24 Freq: Status: Active Protocol: Document 11/27/17 11:20 [facility] (Rec: 11/27/17 12:35 [facility] [email or web address]) Orientation Orientation/Cognition Safety Awareness Decreased Safety Awareness Comments unable to answer questions for orientation Strength Comments Strength Comments unable to follow commands for formal MMT Coordination Assessment Gross Coordination Gross Coordination WNL Assessment Coordination Comments appears to be WNL, not able to formally test however, based on functional movement M7 PT-IP Assessment and Plan Start: 11/27/17 12:24 Freq: Status: Active Protocol: Document 11/28/17 13:15 [facility] (Rec: 11/28/17 14:15 [facility] [id number]) PT Summary Assessment and Plan Summary Impairments Balance Cognition Bed Mobility Transfers Gait Activity Tolerance Assessment Summary Pts apprehension made it difficult to ambulate and a second person would be beneficial for IV pole assist and a possible chair follow. Pt needs constant redirection as pt tries to pull on IV, catheter, gown etc. Pt needs verbal and tactile cues throughout treatment. Goals Bed Mobility Goal Contact Guard Assistance Transfer Goal Standby Assistance Gait Goal Contact Guard Assistance Gait Distance 50 Days to Meet Goals 3 Frequency of Treatment Frequency Of Treatment Once a Day Treatment Plan Physical Therapy Treatment Plan Bed Mobility Training Transfer Training Gait Training Balance Retraining Neuromuscular Re-ed Recommendations To Nursing Amount of Assist Needed 2 Person Assist Discharge Recommendations PT Discharge Recommendations Home with 02/11 Assist SNF Rehab
--- NOTE | 2017-11-28 15:20 | PM.PN.1 ---
Subjective Date Patient Seen: 11/28/17 Time Patient Seen: 14:45 Interval history: This is an 82-year-old debilitated female with advanced dementia presenting with altered mental status/encephalopathy secondary to acute urinary tract infection, bilateral aspiration pneumonia, resulting in sepsis . Patient was admitted to ICU with broad IV antibiotic coverage, IV fluid support, symptomatic and supportive care. Overnight, with ongoping clinical improvement, including mentation and resolving leukocytosis Exam Vital Signs (past 8 hours): - 11/28/17 08:05 11/28/17 08:30 11/28/17 12:50 Temperature 97.8 F 97.2 F L Pulse Rate 81 77 Respiratory Rate 16 18 Blood Pressure 133/72 H 138/63 H Pulse Oximetry 97 95 97 Oxygen Delivery Method Room Air Oxygen Flow Rate 0 Narrative Exam Narrative: Constitutional: Well-nourished, well-developed female in no apparent distress resting comfortably in her bed. She is alert, responsive to verbal stimulation though at the baseline remains aphasic HEENT: Unremarkable exam Eyes: PERRLA, EOMI Neck: Supple no lymphadenopathy nodule consistent Pulmonary: With improved aeration bilaterally Cardiovascular: with mild sinus tachycardia Gastrointestinal: Abdomen is soft, nontender, nondistended, bowel sounds present, no discernible organomegaly. : Ford catheter is present, draining clear urine. Extremities: Warm to touch, no edema Skin: No skin rashes, no lesions. Neurological: No focal neurological symptoms from cranial nerves 2-12. Objective Imaging CT scan - chest: Radiologist's impression: IMPRESSION: 1. Small bilateral pleural effusions with associated compressive atelectasis. However, superimposed infection within this region inferiorly cannot be excluded. 2. Irregular spiculated ground glass nodule in the left upper lobe. The finding is nonspecific and may represent an infectious or inflammatory etiology, but a neoplasm cannot be excluded. Recommend short-term followup in 4-6 weeks to demonstrate resolution. 3. Small clustered ground glass nodules in the right apex likely represent a mild infectious or inflammatory process. Dictated by: Jerald Reddy M.D. on 11/28/2017 at 12:47 Approved by: Jerald Reddy M.D. on 11/28/2017 at 12:52 Labs Result Diagrams: 11/28/17 08:35 11/28/17 08:35 Labs: Laboratory Results - last 24 hr 08/11/28/17 11/28/17 16:10 08:35 08:35 WBC 15.2 H RBC 3.71 L Hgb 11.4 L Hct 33.6 L MCV 90.4 MCH 30.8 MCHC 34.1 RDW 14.0 Plt Count 171 Neut % (Auto) 87.0 H Lymph % (Auto) 6.6 L [place] % (Auto) 4.7 Eos % (Auto) 1.2 L Baso % (Auto) 0.5 Neut # (Auto) 64769 H Sodium 147 H Potassium 3.8 3.3 L Chloride 113 H Carbon Dioxide 26 BUN 13 Creatinine 0.80 Estimated GFR > 60.0 BUN/Creatinine Ratio 16.3 Glucose 99 Calcium 8.4 Magnesium 2.0 Total Bilirubin 0.8 AST 41 H ALT 38 Alkaline Phosphatase 51 Total Protein 5.6 L Albumin 3.1 L Globulin 2.5 Albumin/Globulin Ratio 1.2 Assessment & Plan Plan: Assessment/Plan Narrative: 1. Altered mental status/encephalopathy: Possibly multifactorial, patient has underlying advanced dementia, presenting with clinical symptoms of evolving sepsis secondary to acute E.Coli urinary tract infection and bilateral aspiration pneumonia. With significant improvement in mentation . Continue to treat underlying medical problems. 2. Sepsis: Secondary to above, resolving. Presented with high fever, significant worsening of mentation, clinical symptoms of a UTI and BL aspiration pneumonia. Continue IV hydration was normal saline, antibiotic coverage was combination of IV Zosyn and vancomycin. Blood cultures with no growth to date, urine cultures with over 100 K CFU of E.Coli . Hypotension and sinus tachycardia is essentialy resolved. 3. Dementia, advanced : Patient has underlying advanced Alzheimer's dementia, at the baseline appears to be nonverbal. 4. Acute E.Coliu urinary tract infection: As above, resolving. At the baseline with chronic urinary incontinence. Continue current antibiotic therapy as above. 5. Bilateral aspiration pneumonia: with witnessed episode of nausea and vomiting in the ED . Clinically resolving, continue management as above. 6. Hypernatremia: start hydraton with hypotonic IV fluids, encourage PO intake. 7.Profound debilitation [id number]: Multifactorial. Might benefit from eventual transition to palliation/hospice care 8. GI prophylaxis: Protonix IV 9. DVT prophylaxis: Lovenox sc 10. Code status: DNR/DNI Time Spent With Patient Time with patient: 25 - 35 minutes
--- NOTE | 2017-11-28 15:29 | P.PN_ITS ---
Subjective Date Patient Seen: 11/28/17 Time Patient Seen: 14:45 Interval history: This is an 82-year-old debilitated female with advanced dementia presenting with altered mental status/encephalopathy secondary to acute urinary tract infection, bilateral aspiration pneumonia, resulting in sepsis . Patient was admitted to ICU with broad IV antibiotic coverage, IV fluid support , symptomatic and supportive care. Overnight, with ongoping clinical improvement, including mentation and resolving leukocytosis Exam Vital Signs (past 8 hours): - 11/28/17 08:05 11/28/17 08:30 11/28/17 12:50 Temperature 97.8 F 97.2 F L Pulse Rate 81 77 Respiratory Rate 16 18 Blood Pressure 133/72 H 138/63 H Pulse Oximetry 97 95 97 Oxygen Delivery Method Room Air Oxygen Flow Rate 0 Narrative Exam Narrative: Constitutional: Well-nourished, well-developed female in no apparent distress resting comfortably in her bed. She is alert, responsive to verbal stimulation though at the baseline remains aphasic HEENT: Unremarkable exam Eyes: PERRLA, EOMI Neck: Supple no lymphadenopathy nodule consistent Pulmonary: With improved aeration bilaterally Cardiovascular: with mild sinus tachycardia Gastrointestinal: Abdomen is soft, nontender, nondistended, bowel sounds present, no discernible organomegaly. : Ford catheter is present, draining clear urine. Extremities: Warm to touch, no edema Skin: No skin rashes, no lesions. Neurological: No focal neurological symptoms from cranial nerves 2-12. Objective Imaging CT scan - chest: Radiologist's impression: IMPRESSION: 1. Small bilateral pleural effusions with associated compressive atelectasis. However, superimposed infection within this region inferiorly cannot be excluded. 2. Irregular spiculated ground glass nodule in the left upper lobe. The finding is nonspecific and may represent an infectious or inflammatory etiology, but a neoplasm cannot be excluded. Recommend short-term followup in 4-6 weeks to demonstrate resolution. 3. Small clustered ground glass nodules in the right apex likely represent a mild infectious or inflammatory process. Dictated by: Jerald Reddy M.D. on 11/28/2017 at 12:47 Approved by: Jerald Reddy M.D. on 11/28/2017 at 12:52 Labs Result Diagrams: 11/28/17 08:35 11/28/17 08:35 Labs: Laboratory Results - last 24 hr 08/11/28/17 11/28/17 16:10 08:35 08:35 WBC 15.2 H RBC 3.71 L Hgb 11.4 L Hct 33.6 L MCV 90.4 MCH 30.8 MCHC 34.1 RDW 14.0 Plt Count 171 Neut % (Auto) 87.0 H Lymph % (Auto) 6.6 L [place] % (Auto) 4.7 Eos % (Auto) 1.2 L Baso % (Auto) 0.5 Neut # (Auto) 70471 H Sodium 147 H Potassium 3.8 3.3 L Chloride 113 H Carbon Dioxide 26 BUN 13 Creatinine 0.80 Estimated GFR > 60.0 BUN/Creatinine Ratio 16.3 Glucose 99 Calcium 8.4 Magnesium 2.0 Total Bilirubin 0.8 AST 41 H ALT 38 Alkaline Phosphatase 51 Total Protein 5.6 L Albumin 3.1 L Globulin 2.5 Albumin/Globulin Ratio 1.2 Assessment & Plan Plan: Assessment/Plan Narrative: 1. Altered mental status/encephalopathy: Possibly multifactorial, patient has underlying advanced dementia, presenting with clinical symptoms of evolving sepsis secondary to acute E.Coli urinary tract infection and bilateral aspiration pneumonia. With significant improvement in mentation . Continue to treat underlying medical problems. 2. Sepsis: Secondary to above, resolving. Presented with high fever, significant worsening of mentation, clinical symptoms of a UTI and BL aspiration pneumonia. Continue IV hydration was normal saline, antibiotic coverage was combination of IV Zosyn and vancomycin. Blood cultures with no growth to date, urine cultures with over 100 K CFU of E.Coli . Hypotension and sinus tachycardia is essentialy resolved. 3. Dementia, advanced : Patient has underlying advanced Alzheimer's dementia, at the baseline appears to be nonverbal. 4. Acute E.Coliu urinary tract infection: As above, resolving. At the baseline with chronic urinary incontinence. Continue current antibiotic therapy as above. 5. Bilateral aspiration pneumonia: with witnessed episode of nausea and vomiting in the ED . Clinically resolving, continue management as above. 6. Hypernatremia: start hydraton with hypotonic IV fluids, encourage PO intake. 7.Profound debilitation [id number]: Multifactorial. Might benefit from eventual transition to palliation/hospice care 8. GI prophylaxis: Protonix IV 9. DVT prophylaxis: Lovenox sc 10. Code status: DNR/DNI Time Spent With Patient Time with patient: 25 - 35 minutes
--- NOTE | 2017-11-28 15:43 | CM.IDA ---
Addendum entered by SIL Sheriff 11/28/17 15:56: Spoke w/spouse, Jamie, this afternoon, explained role. Jamie is a very pleasant man and plans to take care of her (pt) at home forever. He feels it is working well at home. He explained that funding is not an issue and he will increase care giving hours if needed. Cg Catia is able to increase her time if needed and can also spend the night if needed. Jamie also explained he is familiar with the [facility] Dementia support groups and does not find them helpful at this time. He also understands what Hospice is and does not think pt is appropriate at this time. Jamie denies needs from this PLASTICS TECHNICIAN but knows to contact the CM team if any needs, questions, or concerns arise. HIRO Original Note: Discharge Planning/Care Management CM Discharge Assessment Start: 11/27/17 16:06 Freq: Status: Active Protocol: Document 11/27/17 16:07 HIRO (Rec: 11/27/17 16:10 HIRO [id number]) Discharge Planning Assessment Assigned Tuber Machine Cutter HIRO DPOA/Assigned Designee Name Jamie Cullen, spouse Contact Information [phone] Advance Directives? Yes Advance Directives on File Yes History Provided By Friend Medical Record Prior Living Arrangements House Household Members spouse Type of transporation used prior to Relies on Others admit Independent with ADL's No Is patient alert and oriented? No: Advanced dementia Needs Assistance With Bathing Eating Grooming Meal Prep Toileting Managing Medications Home Chores / Shopping Discharge Plan Home Transportation Arrangement spouse/cg Referrals Initiated None needed Additional Comment Likely none needed. Lives at home, [place], w/ supportive spouse and cg Catia , P#[phone], Catia works M- F 10-4. Pt's spouse is active, indp and healthy. Cg Catia at bedside today and indicates pt will likely return home when ready. Need to f/u w/ spouse. Whiteboard Updated in Patient Room with Yes name and ext. # of Tuber Machine Cutter Review Status In Process
--- NOTE | 2017-11-29 00:09 | PC.NURSE ---
Patient opens eyes when spoken to and smiles but is mostly non verbal; did respond with okay to one question asked. Breath sounds are CTA with RA sat of 96%; placed on continuous oximeter as per MD order HR is irregular with rate of 85 bpm. BT present and abdomen is soft. Indwelling catheter for adequate urine output. Urine is clear lydia. Is needing to be repositioned q2h as is not turning herself. FLACC score is 0. Fall risk is high per nurse discretion so bed alarm is activated. Reportedly gets out of bed with 2 assist but needs many cues.
[2017-11-29] MEDS: DEXTROSE 5%-0.9% NS 1,000 ML 100 ML IV (00:45)
[2017-11-29 03:41] VITALS: BP 131/69; PULSE 88; RESP 16; TEMP 37.1; O2SAT 95
[2017-11-29 06:17] LABS: Add Manual Diff / Slide Review NO; Basophils Percent Auto 0.8 % (0-2); Eosinophils Percent Auto 2.9 % (2-4); Hematocrit 31.5 % (36-46); Mean Corpuscular HGB Conc 34.8 % (30-36); Mean Corpuscular Hemoglobin 31.2 PG (26-34); Mean Corpuscular Volume 89.7 fL (80-100); Monocytes Percent Auto 5.5 % (3-14); Neutrophils Absolute Auto 9800 /uL (3000-5900); Neutrophils Percent Auto 81.8 % (50-75); Platelet Count 180 X10^3/uL (150-400); Red Blood Cell Count 3.51 X10^6/uL (4.0-5.2); Red Cell Distribution Width 13.5 % (11.6-14.8)
[2017-11-29 06:21] LABS: Alanine Aminotransferase 33 IU/L (9-52); Albumin 2.9 g/dL (3.5-5.0); Albumin Globulin Ratio 1.2 (1.0-2.8); Alkaline Phosphatase 58 U/L (38-126); Aspartate Aminotransferase 25 IU/L (14-36); Bilirubin Total 0.8 mg/dL (0.2-1.3); Blood Urea Nitrogen 7 mg/dL (7-17); Carbon Dioxide 24 mmol/L (22-32); Chloride 111 mmol/L (98-107); Estimated Glomerular Filt Rate > 60.0 mL/min (>60); Globulin 2.4 g/dL (1.7-4.1); Glucose 107 mg/dL (80-110); HEMOLYSIS < 15 (0-50); Sodium 143 mmol/L (137-145); Total Protein 5.3 g/dL (6.3-8.2)
[2017-11-29 06:41] LABS: Potassium 2.7 mmol/L (3.4-5.1)
[2017-11-29 07:00] VITALS: O2SAT 96
[2017-11-29 07:41] VITALS: BP 132/89; PULSE 84; RESP 16; TEMP 37.3; O2SAT 96
[2017-11-29] MEDS: PIPERACILLIN-TAZO 3.375 GM/50 ML FROZ.PIGGY IV (07:59)
[2017-11-29] MEDS: POTASSIUM CHLORIDE 20 MEQ in SODIUM CHLORIDE 0.9% 250 ML 130 ML IV (09:39)
--- NOTE | 2017-11-29 10:57 | P.DS_ITS ---
History of Present Illness Date Patient Seen: 11/29/17 Time Patient Seen: 07:15 Chief complaint: altered mental status Narrative: This is an 82-year-old female with advanced dementia presenting with altered mental status/encephalopathy secondary to acute E.Coli urinary tract infection, and bilateral aspiration pneumonia. The patient is nonverbal at the baseline. Discharge Providers Date of admission: 11/26/17 22:04 Consults: 11/26/17 22:49 Consult to Discharge Planning Routine Comment: Consult to Occupational Therapy Evaluate & Treat Comment: Physician Instructions: Evaluate and treat 11/26/17 22:50 Consult to Physical Therapy Evaluate & Treat Comment: Physician Instructions: Evaluate and Treat 11/27/17 10:18 Consult to Dietitian, Adult Routine Comment: Reason For Exam: failure to thrive Discharge provider: Tony Villafana MD Summary Discharge Diagnosis: 1. Altered mental status/encephalopathy: Possibly multifactorial, patient has underlying advanced dementia, presenting with clinical symptoms of evolving sepsis secondary to acute E.Coli urinary tract infection and bilateral aspiration pneumonia. With significant improvement in mentation . At the time of discharge appears to be at the baseline of her mentation. Continue to treat underlying medical problems. 2. Sepsis: Secondary to above, resolved. Presented with high fever, significant worsening of mentation, clinical symptoms of a UTI and BL aspiration pneumonia. Intital tx with of IV Zosyn and vancomycin was changed to PO Augmentin on discharge. Blood cultures with no growth to date, urine cultures with over 100 K CFU of E.Coli, pansensitive . 3. Dementia, advanced : Patient has underlying advanced Alzheimer's dementia, at the baseline appears to be nonverbal. 4. Acute E.Coliu urinary tract infection: As above, resolving. At the baseline with chronic urinary incontinence. Continue current antibiotic therapy as above. 5. Bilateral aspiration pneumonia: with witnessed episode of nausea and vomiting in the ED . Clinically resolving, continue management as above. 6. Hypernatremia: resolved 7. Hypokalemia: repolace PO 8.Profound debilitation [id number]: Multifactorial. Might benefit from eventual transition to palliation/hospice care 9. Code status: DNR/DNI Hospital Course: This this is an 82-year-old with advanced dementia who was admitted with acute urinary tract infection and bilateral aspiration pneumonia. Patient responded nicely to IV antibiotics, symptomatic and supportive care with resolution of all presenting symptoms. She is getting discharged home with her and caregiver Patient to resume follow-up with her primary care physician on an as-needed basis. Status at Discharge Cognitive/behavioral status at discharge: With underlying advanced dementia, nonverbal at baseline. Functional status at discharge: bed bound Overall status at discharge: patient is progressing back to baseline Time Spent with Patient Greater than 30 minutes Exam Vital Signs (past 8 hours): - 11/29/17 03:41 11/29/17 07:00 11/29/17 07:41 Temperature 98.8 F 99.1 F Pulse Rate 88 84 Respiratory Rate 16 16 Blood Pressure 131/69 H 132/89 H Pulse Oximetry 95 96 96 Oxygen Delivery Method Room Air Oxygen Flow Rate 0 Objective Labs Result Diagrams: 11/29/17 05:50 11/29/17 05:50 Labs: Laboratory Results - last 24 hr 11/29/17 11/29/17 05:50 05:50 WBC 12.0 H RBC 3.51 L Hgb 11.0 L Hct 31.5 L MCV 89.7 MCH 31.2 MCHC 34.8 RDW 13.5 Plt Count 180 Neut % (Auto) 81.8 H Lymph % (Auto) 9.0 L [place] % (Auto) 5.5 Eos % (Auto) 2.9 Baso % (Auto) 0.8 Neut # (Auto) 9800 H Sodium 143 Potassium 2.7 L* Chloride 111 H Carbon Dioxide 24 BUN 7 Creatinine 0.70 Estimated GFR > 60.0 BUN/Creatinine Ratio 10.0 Glucose 107 Calcium 8.0 L Total Bilirubin 0.8 AST 25 ALT 33 Alkaline Phosphatase 58 Total Protein 5.3 L Albumin 2.9 L Globulin 2.4 Albumin/Globulin Ratio 1.2 Discharge Plan Discharge Plan Patient Disposition: Home Discharge comment: Patient to resume follow up with PCP and specialists involved in her care F/u chest imaging in 4-6 weeks was recommended by radiology to address small nodule on the L upper lung Provider Discharge Instructions Diet: Diet as Tolerated Activity: as tolerated Discharge Data Attending Provider: Tony Villafana Admit Date/Time: 11/26/17 22:04
[2017-11-29 11:00] VITALS: BP 133/90; PULSE 93; RESP 16; TEMP 36.3; O2SAT 97
--- NOTE | 2017-11-29 11:24 | PC.NURSE ---
IV potassium replacement infusing this morning as ordered. Patient's and caregiver curious about if patient should require continued potassium supplements upon discharge. Dr. Villafana notified and he reports no, not necessary. No new orders received.
--- NOTE | 2017-11-29 12:05 | CM.DPC ---
DCP Discharge Home Per MD, pt is medically stable to d/c home today with possible need for HH or walker. SW met bedside with pt, who has advanced dementia, and her caregiver Catia and explained role. Caregiver Catia states spouse just left for an appointment with plans for pt to d/c via Catia's vehicle and care since spouse's vehicle is too difficult for pt to navigate getting into and out of. Spouse did not feel pt needed any further SW or HH at discharge and was comfortable with plan for discharge home with ongoing caregiving from Catia. Catia states that she gets the pt out of the house many days a week and pt does not have issues with ambulation or mobility and very much enjoys their outings to [place] and stores. Catia also feels that HH would be too confusing and through the pt off her routine that keeps her happy and comfortable. Per PT, pt was assessed and recommending safe d/c home and no AD needed. Plan: Patient to d/c home today via caregiver Catia's POV. No SW needs at this time. SIL Tong
--- NOTE | 2017-11-29 13:35 | PC.NURSE ---
Patient had another episode of watery loose BM incontinence, no foul smell noted, Dr. Villafana notified. Order for Gi panel received, and patient to wait for results before discharge. Per MD if GI panel positive, he anticipates her staying overnight and discharging tomorrow. If negative she will be able to go home with and caregiver as planned. Patient's caregiver Catia updated and agreeable with plan of care. Patient worked with OT, assisted to shower and now sitting up in chair resting. Continue to follow results.
[2017-11-29 13:52] VITALS: BMI 21.3
--- NOTE | 2017-11-29 13:55 | OT.IP.TRT ---
Current Diagnoses Sepsis, unspecified organism (11/26/17) Occupational Therapy Treatment Note M2 OT-IP Current Condition Start: 11/27/17 17:30 Freq: Status: Active Protocol: Document 11/27/17 17:31 [facility] (Rec: 11/27/17 17:45 [facility] [id number]) Occupational Therapy Current Condition Current Condition Evaluation Date 11/27/17 Treatment Diagnosis UTI, AMS, weakness Diagnosis Onset Date 11/26/17 M3 OT- IP Subjective and Pain Start: 11/27/17 17:30 Freq: Status: Active Protocol: Document 11/29/17 13:45 [facility] (Rec: 11/29/17 13:55 [facility] [id number]) OT- Subjective Occupational Therapy Visit Type Type Treatment Note Visit Start Time 12:40 Visit Stop Time 15:35 Total Visit Minutes 55 Notes Pt's caregiver, Catia present for OT treatment and traiing. M4 OT- IP ADL's Start: 11/27/17 17:30 Freq: Status: Active Protocol: Document 11/29/17 13:45 [facility] (Rec: 11/29/17 13:55 [facility] [id number]) OT ADL-Dressing General Eval Upper Body Dressing Ability Maximum Assistance Lower Body Dressing Ability Total Assistance Areas Needing Assistance Retrieving/Set-up of Clothing Managing Buttons Bra Pull-Over Shirt Underpants/Brief Pants/Shorts Socks Shoes Comments OT Dressing Comments Pt needing extensive assist for all due to decreased ability to follow directions due to advanced dementia. OT ADL-Toileting General Evaluation Toileting Ability Total Assistance Areas Needing Assistance Manage Clothing Perform Perineal Hygiene Comments OT Toileting Comments Pt having diarrhea, nursing aware . OT ADL-Bathing Bathing Type Bathing Type Shower General Evaluation Bathing Ability Maximal Assistance Areas Needing Assistance Retrieving/Setting Up Items Wash/Dry Upper Body Wash/Dry Back Wash/Dry Perineal Area Wash/Dry Lower Extremities Devices Bathing Equipment Shower Chair with Arms Grab Bars Comments OT Bathing Comments Pt able to just wash her hands , otherwise dependent for all other needs. M6 OT- IP Functional Cognition Start: 11/27/17 17:30 Freq: Status: Active Protocol: Document 11/29/17 13:45 [facility] (Rec: 11/29/17 13:55 [facility] [id number]) Cognitive Factors Limiting Selfcare Function Cognitive Ability Level of Alertness Alert Patient Orientation Name Attention Span Ability Unable to Focus Unable to Sustain Attention Ability to Follow Commands Able to Follow One Step Commands with Increased Time Able to Follow One Step Commands with Repetition M7 OT- IP Mobility and Balance Start: 11/27/17 17:30 Freq: Status: Active Protocol: Document 11/29/17 13:45 [facility] (Rec: 11/29/17 13:55 [facility] [id number]) OT-Transfer Assessment Sit to and From Stand Sit to and from Stand Moderate Assistance 1 Person Assistance 2 Person Assistance Transfers Transfer Ability Moderate Assistance 1 Person Assistance 2 Person Assistance Technique Transfer Destination Chair Toilet Devices Transfer Assistive Devices Gait Belt Comments Mobility Comments Pt's caregiver states pt does not use FWW at home and therefore hand held assist is more appropriate. Educated caregiver to assist pt to stand by using gait belt, use of gait belt versus pulling up on her arms to stand. In addition to have pt scoot forwards and be sure her feet are underneath her before she stands. Therefore once up, one hand on her gait belt/hips and other to hold onto pt's hand to help guide her while up walking to toilet,shower, etc. Pt at one point FAIZA x 1 and MOD x 2 when stepping over thresholds and turning. Pt needing to hold to grab bars to help to sit to toilet and BSC in shower. OT- Balance Assessment Sitting Balance and Reactions Static Sitting Balance Ability Good Dynamic Sitting Balance Ability Fair Standing Balance and Reactions Static Standing Balance Ability Fair Dynamic Standing Balance Ability Poor M8 OT- IP Objective Assessments Start: 11/27/17 17:30 Freq: Status: Active Protocol: Document 11/27/17 17:31 [facility] (Rec: 11/27/17 17:45 [facility] [id number]) OT Strength Comments Strength Comments At least 3+/5. OT-Muscle Tone Assessment Muscle Tone WNL Yes M9 OT- IP Assessment and Plan Start: 11/27/17 17:30 Freq: Status: Active Protocol: Document 11/29/17 13:45 [facility] (Rec: 11/29/17 13:55 [facility] [id number]) OT Summary Assessment and Plan Summary Progress Towards Goals Slow Progress due to Medical Issues Slow Progress due to Activity Tolerance Slow Progress due to Cognition Assessment Summary Pt low complexity main barrier ability for follow commands, pt will continues to need 24/ 7 assist upon discharge. Per caregiver, pt is a little weaker from baseline and able to walk on her own and now needing hand held assist and FAIZA x 1 to MOD x 1. Goals Days to Meet Goals 2 Frequency of Treatment Frequency Of Treatment Once a Day Treatment Plan OT Treatment Plan Patient/Family Education Discharge Planning Other Treatment Recommendations and Next Caregiver training Treatment Focus Discharge Recommendations OT Discharge Recommendations Home with 24/ Assist
[2017-11-29 15:05] LABS: Adenovirus F 40/41 Not Detected (Not Detect); Astrovirus Not Detected (Not Detect); Campylobacter Not Detected (Not Detect); Clostridium difficile toxin AB Not Detected (Not Detect); Cryptosporidium Not Detected (Not Detect); Cyclospora cayetanensis Not Detected (Not Detect); Entamoeba histolytica Not Detected (Not Detect); Enteroaggregative E.coli Not Detected (Not Detect); Enteropathogenic E.coli Not Detected (Not Detect); Enterotoxigenic E.coli It/st Not Detected (Not Detect); Giardia lamblia Not Detected (Not Detect); Norovirus GI/GII Not Detected (Not Detect); Plesiomonsa shigelloides Not Detected (Not Detect); Rotavirus A Not Detected (Not Detect); Salmonella Not Detected (Not Detect); Sapovirus Not Detected (Not Detect); Shiga-like toxin-prod E.coli Not Detected (Not Detect); Shigella/Enteroinvasive E.coli Not Detected (Not Detect); Vibrio Not Detected (Not Detect); Vibrio cholerae Not Detected (Not Detect); Yersinia enterocolitica Not Detected (Not Detect)
--- NOTE | 2017-11-29 15:13 | PT.IPTN ---
Addendum entered and electronically signed by Jessica Hook, PT 11/29/17 16:54: Recommendations for nursing were charted incorrectly. Pt able to transfer with handhold assist, NOT 2 person assist/mechanical lift as originally typed. Original Note: Current Diagnoses Sepsis, unspecified organism (11/26/17) Physical Therapy Treatment Note M2 PT-IP Current Condition Start: 11/27/17 12:24 Freq: Status: Discharge Protocol: Document 11/27/17 11:20 RCC (Rec: 11/27/17 12:35 RCC [id number]) Physical Therapy Current Condition Current Condition Evaluation Date 11/27/17 Treatment Diagnosis AMS, impaired mobility Onset Date 11/26/17 M3 PT-IP Subjective Start: 11/27/17 12:24 Freq: Status: Discharge Protocol: Document 11/29/17 15:13 MDD (Rec: 11/29/17 16:34 MDD [id number]) Subjective Physical Therapy Visit Type Type Treatment Note Visit Start Time 15:02 Visit Stop Time 15:13 Total Visit Minutes 11 Notes Catia, pt's caregiver in room. Reports she doesn't have any concerns regarding discharge. Discussed transfers, getting in/out of bed etc. Number of [employer] INST[employer]ER Visits 0 Therapy Pain Assessment Pain Present Pain Present Denied Pain M4 PT-IP Mobility and Gait Start: 11/27/17 12:24 Freq: Status: Discharge Protocol: Document 11/29/17 15:13 MDD (Rec: 11/29/17 16:34 MDD [id number]) PT-Transfer Assessment Sit to and From Stand Sit to and from Stand 1 Person Assistance Transfer Ability Level of Assist 1 Person Assistance Comments Mobility Comments Pt performs sit to stand with handhold assist from caregiver . Gait Assessment Gait Gait Assistance Required: 1 Person Assist Distance (Feet) (feet) 212 Able to Maintain Weight Bearing Status Yes During Gait Gait Deviations General Gait Pattern Narrow Based Gait Factors Limiting Gait Function Factors Limiting Gait Function Poor Safety Awareness Comments Gait Comments Pt performed gait this day with handhold assist from caregiver. M5 PT-IP Objective Assessments Start: 11/27/17 12:24 Freq: Status: Discharge Protocol: Document 11/27/17 11:20 RCC (Rec: 11/27/17 12:35 RCC [email or web address]) Orientation Orientation/Cognition Safety Awareness Decreased Safety Awareness Comments unable to answer questions for orientation Strength Comments Strength Comments unable to follow commands for formal MMT Coordination Assessment Gross Coordination Gross Coordination WNL Assessment Coordination Comments appears to be WNL, not able to formally test however, based on functional movement M6 PT-IP Treatment Start: 11/27/17 12:24 Freq: Status: Discharge Protocol: Document 11/29/17 15:13 MDD (Rec: 11/29/17 16:34 MDD [id number]) Physical Therapy Treatment Other Treatments Other Treatment Performed Reviewed bed mobility, transfers with CG. She reports no additional questions, feels confident in her ability to care for pt at this point. M7 PT-IP Assessment and Plan Start: 11/27/17 12:24 Freq: Status: Discharge Protocol: Document 11/29/17 15:13 MDD (Rec: 11/29/17 16:34 MDD [id number]) PT Summary Assessment and Plan Potential Rehabilitation Potential Good Status of Condition at Evaluation Stable Summary Impairments Transfers Gait Progress Towards Goals Safe For Discharge Goals Met Assessment Summary Pt appears to have reached her functional baseline today. Requires handhold assist for transfers and gait. Pt deemed safe to d/c home with assist when medically appropriate. Goals Bed Mobility Goal Contact Guard Assistance Transfer Goal Standby Assistance Gait Goal Contact Guard Assistance Gait Distance 50 Days to Meet Goals 3 Frequency of Treatment Frequency Of Treatment Once a Day Treatment Plan Physical Therapy Treatment Plan Bed Mobility Training Transfer Training Gait Training Balance Retraining Neuromuscular Re-ed Recommendations To Nursing Amount of Assist Needed 2 Person Assist Mechanical Lift Discharge Recommendations PT Discharge Recommendations Home with 02/11 Assist SNF Rehab
--- NOTE | 2017-11-29 15:57 | PC.NURSE ---
Discharge Note Pt alert, oriented to self, VSS, no complaints of pain. Discharge instructions and new script given to pt and caregiver, no questions or concerns. All belongings packed and sent with caregiver. Pt taken down via wheelchair to personal vehicle.
== END 2017-11-29 15:55 | disposition home or self-care (01) | DRG 871 ==
LOC: ED 22:00 → AC 11-27 00:20 → ICU 11-27 09:26 → AC 11-29 10:45 → ICU 11-30 12:51
PROVIDERS: Admitting Provider Hospitalist; Emergency Provider Emergency Medicine; Visit Provider Hospitalist
DX: A41.9 Sepsis, unspecified organism (principal); J69.0 Pneumonitis due to inhalation of food and vomit; G93.41 Metabolic encephalopathy; R40.2312 Coma scale, best motor response, none, at arrival to emergency department; R40.2212 Coma scale, best verbal response, none, at arrival to emergency department; N39.0 Urinary tract infection, site not specified; E87.0 Hyperosmolality and hypernatremia; R65.20 Severe sepsis without septic shock; B96.20 Unspecified Escherichia coli [E. coli] as the cause of diseases classified elsewhere; G30.9 Alzheimer's disease, unspecified; F02.80 Dementia in other diseases classified elsewhere, unspecified severity, without behavioral disturbance, psychotic disturbance, mood disturbance, and anxiety; R40.2132 Coma scale, eyes open, to sound, at arrival to emergency department; Z66 Do not resuscitate; E87.6 Hypokalemia
CPT/HCPCS: 36415; 71045; 71250; 80048; 80053; 81001; 82962; 83605; 83735; 83880; 84132; 84145; 85025; 87040; 87077; 87086; 87186; 87507; 87797; 93005; 93010; 94762; 96361; 96365; 96375; 97163; 97165; 97530; 97535; 99284; 99285; J2543; J3010; J3480

== ENCOUNTER 2018-02-08 11:35 | Emergency (ER) | payer MEDICARE, SELFPAY ==
[2017-11-27 01:15] VITALS: BMI 19.5
[2018-02-08 11:39] VITALS: BP 146/72; PULSE 63; RESP 21; TEMP 36.7; O2SAT 100
--- NOTE | 2018-02-08 11:42 | ED.AMS ---
HPI - Altered Mental Status General Chief Complaint: Altered Mental Status Stated Complaint: Unresponsive Time Seen by Provider: 02/08/18 11:42 Source: family and EMS Mode of arrival: EMS Limitations: other (Dementia) History of Present Illness HPI narrative: Patient is an 82-year-old female brought in by EMS after they were called by the patient's and caregiver. They are at bedside and provided all of the HPI. They stated that the patient baseline has dementia. They state that she is nonverbal. They stated the time of my exam they feel that she is back to baseline. They stated that they called EMS because they normally wake the patient at 10 o'clock in the morning. They went in to wake the patient and they stated that they were unable to arouse her. The superintendent sanitation stated that her ?eyes were fluttering? they state that they tried for approximately an hour to arouse her however were unable to do so. They called EMS. Patient's states that she return back to normal in during the ride to the emergency department. Related Data Allergies Allergy/AdvReac Type Severity Reaction Status Date / Time No Known Drug Allergies Allergy Verified 11/26/17 21:28 Review of Systems Review of Systems Provided by and superintendent sanitation. Unable to obtain any review of systems from the patient given her history of dementia and nonverbal status. Neurologic Comments: Unable to arouse the patient this morning during her normal wake up time Exam Initial Vital Signs Initial Vital Signs: Vital Signs Temperature 98.0 F 02/08/18 11:39 Pulse Rate 63 02/08/18 11:39 Respiratory Rate 21 02/08/18 11:39 Blood Pressure 146/72 H 02/08/18 11:39 Pulse Oximetry 100 02/08/18 11:39 Const General: well developed, well groomed and No acute distress Orientation: alert, awake and other (Did not answer any orientation questions. This is baseline for her per her was at bedside) HENMT Head: normal to inspection and normocephalic Resp Effort & Inspection: normal respiratory effort Cardio Rate: regular rate Skin Lesions: no lesions Neuro General: alert and awake Other: Patient is nonverbal. Did squeeze my hand with her right hand. Did wiggle her toes to command. Patient's and superintendent sanitation states that she is at baseline Extrem Other: No gross deformities Psych Appearance: grossly normal and well kempt Course Vital Signs - 8 hr 02/08/18 11:39 02/08/18 12:12 02/08/18 12:30 Temperature 98.0 F Pulse Rate 63 57 L 59 L Respiratory Rate 21 19 20 Blood Pressure 146/72 H Blood Pressure [Left Arm] 125/64 122/60 Pulse Oximetry 100 98 98 MDM - Altered Mental Status Lab Data Point of Care Testing Glucose POC 152 MDM Narrative Medical decision making narrative: I had a discussion with the patient the superintendent sanitation regarding their wishes and the patient's wishes with regard to workup. I did discuss that we could potentially do lab work and head CTs to evaluate for things like strokes and intracerebral hemorrhages and electrolyte abnormalities or other infections. She was at baseline per their report. After this discussion the patient's opted to not perform any sort of workup given her normal vital signs and the fact that she was back to baseline. They were under the understanding that we could potentially be missing a serious condition such as a stroke. Patient's opted to be discharged in to take her home. I feel that this is not unreasonable. They were given return precautions. The and superintendent sanitation both expressed understanding and agreement with plan. Discharge Plan Departure Patient Disposition: Home Clinical Impression: Dementia Discharge Date/Time: 02/08/18 12:58 Interventions: ED Discharge Assessment Last Done: 02/08/18 12:57 Instructions: How to Prevent Falls Activity Restrictions/Additional Instructions: continue all of your medications as instructed. Contact her primary care doctor for a follow-up. Return to the emergency department for any new or worsening symptoms.
[2018-02-08 12:12] VITALS: BP 125/64; PULSE 57; RESP 19; O2SAT 98
[2018-02-08 12:30] VITALS: BP 122/60; PULSE 59; RESP 20; O2SAT 98
== END 2018-02-08 12:58 | disposition home or self-care (01) ==
PROVIDERS: Emergency Provider Emergency Medicine
DX: F03.90 Unspecified dementia, unspecified severity, without behavioral disturbance, psychotic disturbance, mood disturbance, and anxiety (principal); R41.89 Other symptoms and signs involving cognitive functions and awareness
CPT/HCPCS: 93005; 99282; 99283

== ENCOUNTER → 2018-05-27 11:32 | Outpatient (CLI) | payer MEDICARE, SELFPAY ==
[2017-11-27 01:15] VITALS: BMI 19.5
--- NOTE | 2018-05-27 14:09 | DI.MRI.S_ITS ---
PROCEDURE: MR BRAIN (IAC) WWO CON INDICATIONS: BRAIN TUMOR TECHNIQUE: Noncontrast sagittal T1 spin echo, axial FLAIR, axial gradient echo, axial diffusion and ADC through the brain. Axial thin-slice 3D CISS, coronal TruFISP, axial T1 spin echo with fat saturation through the internal auditory canals. After the administration of contrast, thin slice axial and coronal T1 spin echo with fat saturation through the internal auditory canals, and axial T1 spin echo with fat saturation through the brain. COMPARISON: None. FINDINGS: Image quality: Limited by patient motion artifact. Cerebellopontine angles: No cerebellopontine angle masses. Inner ear structures appear normally formed. No suspicious enhancement in the internal auditory canal or along the course of the 7th cranial nerve. CSF spaces: There is diffuse process CSF space. Prominence of the ventricular system is out of proportion to prominence of the sulci which could be due to central one loss versus normal pressure hydrocephalus. No extra-axial fluid collections. Basal cisterns are patent. Brain: No acute intracranial bleed. Small, approximately 1.1 x 1.2 cm dural based, extra-axial enhancing lesion is noted in the left middle cranial fossa adjacent to the inferior margin of the left temporal lobe. There is mild dural thickening and enhancement adjacent to the left temporal extra-axial mass. Encephalomalacia with surrounding gliosis is noted in the posterior left frontal lobe adjacent to the falx. No post contrast-enhancement is identified in the area of left frontal encephalomalacia within the limitations related to motion artifact. Jaime-white matter interface is intact. No abnormal intracranial enhancement within limitations related to motion artifact. Scattered punctate foci of increased T2 signal noted in the paraventricular and subcortical white matter tracts compatible with mild to moderate chronic microvascular ischemic changes. Diffusion weighted images demonstrate no acute ischemic insults. Brainstem appears normal. Normal intravascular flow voids are present. Skull and face: Postsurgical changes compatible with left frontal-parietal craniotomy noted. Calvarial marrow signal is normal. Orbits appear normal. Sinuses: Sinuses and mastoids are clear. IMPRESSION: 1. Image quality severely limited by patient motion artifact. 2. Postsurgical changes compatible with prior left frontal-parietal craniotomy. Please correlate with surgical history. 3. Encephalomalacia with surrounding gliosis involving the posterior left frontal lobe. 4. 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 5. Moderate, diffuse volume loss. 6. Mild to moderate periventricular and subcortical white matter chronic microvascular ischemic changes. 7. Mild ventriculomegaly which could be related to central volume loss versus normal pressure hydrocephalus. Please correlate with clinical data. Dictated by: Mitra Buckner MD, PhD on 05/27/2018 at 16:08 Approved by: Mitra Buckner MD, PhD on 05/27/2018 at 16:23
== END ==
PROVIDERS: Visit Provider Neurological Surgery
DX: D49.6 Neoplasm of unspecified behavior of brain (principal); G93.89 Other specified disorders of brain
CPT/HCPCS: 70553; A9579